=== PATIENT | male | born 1955 | race Caucasian/White ===

== ENCOUNTER 2021-02-05 06:47 | Day surgery (SDC) | payer BC ==
[2021-02-05] MEDS ORDERED: Lactated Ringers 1,000 ML IV SCH (07:00)
[2021-02-05] MEDS ORDERED: fentaNYL 100 MCG/2 ML SDV ONE (08:07)
[2021-02-05] MEDS ORDERED: Propofol 200 MG/20 ML SDV ONE ×2 (08:07→08:31)
[2021-02-05 09:06] VITALS: BP 130/75; PULSE 75
--- NOTE | 2021-02-05 13:33 | OR ---
DATE OF SURGERY: 02/05/2021. REFERRING PROVIDER: Tracey Maya DO PRE-OPERATIVE DIAGNOSIS: Positive family history of colon cancer. The patient's mother was diagnosed in her mid 50s and a brother initially diagnosed in his mid 40s and then had recurrence. The patient's last colonoscopy was in 2014 and was normal. POST-OPERATIVE DIAGNOSES: 1. 4 mm polyp at 20 cm, removed using hot snare. 2. Otherwise, normal-appearing colonic mucosa and normal-appearing distal ileum. PROCEDURE: Colonoscopy with polypectomy x1 using hot snare. SURGEON: Umair Oh M.D. ANESTHESIA: Monitored anesthesia care. BOWEL PREP: Good. Dominick is a 65-year-old male who was brought to the endoscopy suite after discussing risks and benefits of the procedure. Informed consent was obtained for conscious sedation and colonoscopy with or without biopsy and/or polypectomy. We also discussed possibility of missed lesions. Pre-procedure exam was unremarkable. IV, oxygen, and monitors were placed. The patient was placed in the left lateral decubitus position. Sedation was administered and a digital rectal exam was performed and unremarkable. Colonoscope was passed into the rectum and slowly advanced all the way to the cecum. Cecum was viewed and photographed. Ileocecal valve was intubated and distal ileum was normal in appearance. The colonoscope was slowly withdrawn and the mucosa was closed observed in a direct circumferential manner. The ascending colon was unremarkable. The transverse colon was unremarkable. The descending colon was unremarkable. The sigmoid colon did reveal 4 mm polyp at 20 cm, removed using hot snare. Retroflexion was performed and rectal mucosa was unremarkable. Scope was removed. The patient tolerated the procedure well. The patient was monitored until that baseline status. Discharge instructions were reviewed and the patient was discharged in good condition. COMPLICATIONS: None. TOTAL TIME: 21 minutes. ESTIMATED BLOOD LOSS: Nil. RECOMMENDATIONS/FOLLOW-UP: We will await results of path report to determine ideal followup interval. We will have the patient hold his low-dose aspirin for 3 days just to limit any chance of bleeding from polypectomy site. I would like to kindly thank Dr. Maya for this referral. DMB: 02/05/2021 08:59:05 MODL: 02/05/2021 10:31:38 /[id number]
== END 2021-02-05 09:35 | disposition home or self-care (01) ==
LOC: VM.SDS 06:47
PROVIDERS: ATTEND Family Medicine
DX: Z12.11 Encounter for screening for malignant neoplasm of colon (principal); K63.5 Polyp of colon; I10 Essential (primary) hypertension; G47.33 Obstructive sleep apnea (adult) (pediatric); E78.5 Hyperlipidemia, unspecified; E11.9 Type 2 diabetes mellitus without complications; Z79.84 Long term (current) use of oral hypoglycemic drugs; Z79.899 Other long term (current) drug therapy; E78.00 Pure hypercholesterolemia, unspecified; Z80.0 Family history of malignant neoplasm of digestive organs; E66.9 Obesity, unspecified; Z88.8 Allergy status to other drugs, medicaments and biological substances; Z68.32 Body mass index [BMI] 32.0-32.9, adult
CPT/HCPCS: 00812; 82947; J2704; J3010; J7120